=== PATIENT | male | born 1975 | race Hispanic/Latino ===

== ENCOUNTER 2016-06-17 13:16 | Emergency (ER) | payer BC, OTHER ==
[2016-06-17 13:28] VITALS: PULSE 83; RESP 16; TEMP 98; O2SAT 100
--- NOTE | 2016-06-17 14:55 | ED PDOC ---
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 Patient denies loss of consciousness, he states tetanus is up-to-date. He has mild localized pain to the affected area. Initially bleeding was profuse but has since stopped. Patient rates the headache as a 5 out of 10 and he denies any vision changes, dizziness, nausea or vomiting. PMD: In [place] Past Medical History Reviewed: Historical Data, Nursing Documentation, Vital Signs Vital Signs: Last Vital Signs Temp 98.0 F 06/17/16 13:24 Pulse 83 06/17/16 13:24 Resp 16 06/17/16 13:24 BP 145/92 H 06/17/16 13:24 Pulse Ox 100 06/17/16 13:24 - Medical History PMH: No Chronic Diseases - Surgical History Surgical History: No Surg Hx - Family History Family History: States: No Known Family Hx - Living Arrangements Living Arrangements: With Family - Social History Current smoker - smoking cessation education provided: No Alcohol: None Drugs: Denies - Immunization History Hx Tetanus Toxoid Vaccination: Yes - Allergies Allergies/Adverse Reactions: Allergies Allergy/AdvReac Type Severity Reaction Status Date / Time No Known Allergies Allergy Verified 06/17/16 13:23 Review of Systems ROS Statement: Except As Marked, All Systems Reviewed And Found Negative Eyes: Negative for: Vision Change Gastrointestinal: Negative for: Nausea, Vomiting Skin: Positive for: Other (Laceration to scalp) Neurological: Positive for: Headache (Mild, s/p scalp laceration), Other (no LOC ). Negative for: Weakness, Numbness, Incoordination, Change in Speech, Confusion, Seizures, Altered Mental Status, Dizziness Physical Exam - Reviewed Nursing Documentation Reviewed: Yes Vital Signs Reviewed: Yes - Physical Exam Appears: Positive for: Non-toxic, No Acute Distress Head Exam: Positive for: NORMOCEPHALIC. Negative for: ATRAUMATIC (1.5 cm superficial laceration to the anterior region of the scalp with minimal active bleeding, no hematomas noted) Skin: Positive for: Normal Color, Warm, Dry Eye Exam: Positive for: Normal appearance, EOMI, PERRL ENT: Positive for: Normal ENT Inspection Neck: Positive for: Painless ROM Cardiovascular/Chest: Positive for: Regular Rate, Rhythm Respiratory: Positive for: Normal Breath Sounds Neurologic/Psych: Positive for: Alert, Oriented, Gait (steady) - ECG O2 Sat by Pulse Oximetry: 100 (RA) Pulse Ox Interpretation: Normal Medical Decision Making Medical Decision Making: Time: 13:24 Initial impression: Scalp Laceration, no LOC Initial plan: -- Lac repair --Pain meds declined Time: 14:52 Upon provider reevaluation patient is feeling better, is medically stable, and requires no further treatment in the ED at time. Patient will be discharged home. Counseling was provided and all questions were answered regarding diagnosis and need for follow up with PMD upon returning to [place], where patient lives. There is agreement to discharge plan. Return if symptoms persist or worsen. Clinical Impression: Scalp Laceration Scribe Attestation: Documented by Martha Syed, acting as a scribe for Tran Urena PA-C. Provider Scribe Attestation: All medical record entries made by the Scribe were at my direction and personally dictated by me. I have reviewed the chart and agree that the record accurately reflects my personal performance of the history, physical exam, medical decision making, and the department course for this patient. I have also personally directed, reviewed, and agree with the discharge instructions and disposition. Procedures - Laceration/Wound Repair anterior scalp laceration Wound Length (cm): 1 (1.5 cm total) Wound's Depth, Shape: superficial Wound Explored: clean Irrigated w/ Saline (ccs): 20 Betadine Prep?: Yes Wound Repaired With: [facility] (2 - patient decined local anesthetic, 2 clarence used to approximate wound edges) Layer Closure?: No Wound Complexity: Simple Sterile Dressing Applied?: (bacitracin applied) Splint Applied?: No Disposition - Clinical Impression Clinical Impression: Scalp laceration - Patient ED Disposition Is Patient to be Admitted: No Counseled Patient/Family Regarding: Diagnosis, Need For Followup - Disposition Referrals: [facility] [Outside] Disposition: Routine/Home Disposition Time: 14:52 Condition: STABLE Additional Instructions: Keep wound clean and dry. Advil as needed for pain. Wound check 2-3 days. Staple removal in 10-14 days. Instructions: Laceration (ED), Staple Care (ED)
[2016-06-17 15:08] VITALS: BP 137/84
== END 2016-06-17 15:08 | disposition home or self-care (01) ==
LOC: H.ER 13:16
DX: S01.01XA Laceration without foreign body of scalp, initial encounter (principal); W22.8XXA Striking against or struck by other objects, initial encounter; Y93.89 Activity, other specified; Y92.69 Other specified industrial and construction area as the place of occurrence of the external cause; Y99.0 Civilian activity done for income or pay